=== PATIENT | male | born 1965 | race Caucasian/White ===

== ENCOUNTER 2017-07-07 10:37 | Emergency (ER) | payer OTHER ==
[2017-07-07 10:44] VITALS: BP 117/78; PULSE 67; TEMP 98.6; BMI 29.0
[2017-07-07] MEDS ORDERED: DEXAMETHASONE LIQUID 0.5 MG/5 ML 240 ML BULK BOTTLE PO ONE (11:07)
[2017-07-07] MEDS ORDERED: ALBUTEROL SO4 2.5/IPRATROPIUM 0.5 INH SOL 3 ML VIAL.NEB. NEB ONE ×2 (11:07→12:33)
[2017-07-07] MEDS: ALBUTEROL SO4 2.5/IPRATROPIUM 0.5 INH SOL 3 ML VIAL.NEB. NEB SCH ×4 (11:09→12:36)
[2017-07-07] MEDS ORDERED: DEXAMETHASONE SOD PHOSPHATE 10 MG/1 ML VIAL ONE (11:10)
--- NOTE | 2017-07-07 11:16 | PDOC ---
History of Present Illness - General Chief Complaint: Respiratory Stated Complaint: COUGH Time Seen by Provider: 07/07/17 11:04 History Source: Patient - History of Present Illness Initial Comments: 07/07/17 11:09 52-year-old male with a nonproductive cough 3 weeks. No associated symptoms. Denies fever chills, night sweats. No significant past medical history no ALLERGIES no surgical history. Past History - Past Medical History Allergies/Adverse Reactions: Allergies Allergy/AdvReac Type Severity Reaction Status Date / Time No Known Allergies Allergy Verified 07/07/17 10:41 Home Medications: Ambulatory Orders Albuterol Sulfate Inhaler - [Ventolin HFA Inhaler -] 1 - 2 inh PO Q4H #1 inhaler 07/07/17 Amoxicillin/Potassium Clav [Augmentin 875-125 Tablet] 1 each PO BID #20 tablet 07/07/17 Guaifenesin [Robitussin] 5 ml PO HS #30 ml 07/07/17 COPD: No - Suicide/Smoking/Psychosocial Hx Smoking History: Never smoked Information on smoking cessation initiated: No Hx Alcohol Use: Yes (SOCIAL) Drug/Substance Use Hx: No Substance Use Type: None Review of Systems - Review of Systems Comments:: GENERAL/CONSTITUTIONAL: No fever or chills. No weakness. No weight change. HEAD, EYES, EARS, NOSE AND THROAT: No change in vision. No ear pain or discharge. No sore throat. CARDIOVASCULAR: No chest pain or shortness of breath. RESPIRATORY: + cough, no wheezing, or hemoptysis. GASTROINTESTINAL: No nausea, vomiting, diarrhea or constipation. No rectal bleeding. GENITOURINARY: No dysuria, frequency, or change in urination. MUSCULOSKELETAL: No joint or muscle swelling or pain. No neck or back pain. SKIN AND BREASTS: No rash or easy bruising. NEUROLOGIC: No headache, vertigo, loss of consciousness, or loss of sensation. PSYCHIATRIC: No depression or anxiety. ENDOCRINE: No increased thirst. No abnormal weight change. HEMATOLOGIC/LYMPHATIC: No anemia, easy bleeding, or history of blood clots. ALLERGIC/IMMUNOLOGIC: No hives or skin allergy. No latex allergy. 07/07/17 11:15 *Physical Exam - Vital Signs Last Vital Signs Temp Pulse Resp BP Pulse Ox 98.6 F 67 18 117/78 100 07/07/17 10:42 07/07/17 10:42 07/07/17 10:42 07/07/17 10:42 07/07/17 10:42 - Physical Exam Comments: GENERAL: The patient is awake, alert, and fully oriented, in no acute distress. HEAD: Normal with no signs of trauma. EYES: Pupils equal, round and reactive to light, extraocular movements intact, sclera anicteric, conjunctiva clear. ENT: Ears normal, nares patent, oropharynx clear without exudates. Moist mucous membranes. NECK: Normal range of motion, supple without lymphadenopathy, JVD, or masses. LUNGS: Bilateral diffuse wheezing HEART: Regular rate and rhythm, normal S1 and S2 without murmur, rub or gallop. ABDOMEN: Soft, nontender, normoactive bowel sounds. No guarding, no rebound. No masses. EXTREMITIES: Normal range of motion, no edema. No clubbing or cyanosis. No cords, erythema, or tenderness. NEUROLOGICAL: Cranial nerves II through XII grossly intact. Normal speech, normal gait. PSYCH: Normal mood, normal affect. SKIN: Warm, Dry, normal turgor, no rashes or lesions noted. 07/07/17 11:18 Medical Decision Making - Medical Decision Making 52-year-old male with most likely ALLERGIC asthma. DuoNeb nebs and Decadron of been ordered I will reevaluate him after treatment 07/07/17 11:24 07/07/17 12:24 He's clearing up nicely at the second DuoNeb treatment. He does have audible rhonchi at the left base. Mild wheezing is at the left base at this point no diffuse wheezing anymore. 07/07/17 12:50 Chest x-ray was reviewed and is negative. 07/07/17 13:01 Patient's wheezing has cleared after the third DuoNeb treatment he still has mild rhonchi at the left base. I will treat him with Augmentin, Robitussin, and Ventolin, he has an upcoming appointment with his primary care provider within the week. *DC/Admit/Observation/Transfer Diagnosis at time of Disposition: Bronchitis - Discharge Dispostion Disposition: HOME Condition at time of disposition: Improved Decision to Admit order: No - Referrals Referrals: Jairo Cruz MD [Primary Care Provider] - - Patient Instructions Printed Discharge Instructions: DI for Acute Bronchitis Additional Instructions: Return to the emergency room if your symptoms worsen or return. I've given you an antibiotic which she should take one pill twice a day for the next 10 days. A cough syrup for nighttime use. As well as an inhaler if you feel short of breath. Take the medication as prescribed. Return to your primary care provider as scheduled within the next week. - Post Discharge Activity
--- NOTE | 2017-07-08 13:25 | EKG ---
Test Reason : Blood Pressure : / mmHG Vent. Rate : 065 BPM Atrial Rate : 065 BPM P-R Int : 142 ms QRS Dur : 088 ms QT Int : 392 ms P-R-T Axes : 015 024 028 degrees QTc Int : 407 ms NORMAL SINUS RHYTHM NORMAL ECG WHEN COMPARED WITH ECG OF 26-DEC-2011 07:18, NO SIGNIFICANT CHANGE WAS FOUND Confirmed by KESHAWN DUAGHERTY MD ([id number]) on 07/08/2017 1:24:35 PM Referred By: Confirmed By:KESHAWN DAUGHERTY MD
== END 2017-07-07 13:10 | disposition home or self-care (01) ==
LOC: JERFT 10:37
PROC: 3E0F7GC Introduction of Other Therapeutic Substance into Respiratory Tract, Via Natural or Artificial Opening (ICD-10-PCS; principal; 2017-07-07)
DX: J45.998 Other asthma (principal); J20.9 Acute bronchitis, unspecified
CPT/HCPCS: 71045-TC-FY; 93005; 93010; 94640; 99281-25; J7620

== ENCOUNTER 2021-11-16 19:43 | Emergency (ER) | payer OTHER ==
[2021-11-16 20:09] VITALS: BP 107/66; PULSE 63; RESP 19; TEMP 97.8; BMI 27.9
[2021-11-16] MEDS ORDERED: CEPHALEXIN MONOHYDRATE 500 MG CAPSULE (UD) PO STA (21:25)
[2021-11-16] MEDS ORDERED: CEPHALEXIN MONOHYDRATE 500 MG CAPSULE (UD) ONE (21:31)
== END 2021-11-16 21:43 | disposition home or self-care (01) ==
LOC: JER 19:43
DX: L03.311 Cellulitis of abdominal wall (principal)
CPT/HCPCS: 99283-25

== ENCOUNTER 2021-11-19 19:42 | Inpatient (IN) | payer OTHER ==
[2021-11-19 19:52] VITALS: BMI 27.9
[2021-11-19] MEDS ORDERED: VANCOMYCIN 1 GM in D5W (PRE-DOCKED) 1,000 MG/250 ML IVPB ONE (20:23)
[2021-11-19] MEDS ORDERED: PIPERACILLIN/TAZOB 3.375 GM 3.375 GM in DEXTROSE 5%-WATER - 50 ML IVPB ONE (20:23)
[2021-11-19] MEDS ORDERED: ACETAMINOPHEN 1000 MG/100 ML BAG IVPB ONE (20:23)
[2021-11-19] MEDS ORDERED: ACETAMINOPHEN INJECTION 100 ML IVPB ONE (21:02)
[2021-11-19] MEDS ORDERED: VANCOMYCIN/WATER FOR INJ (PEG) 1,000 MG/200 ML BAG IVPB ONE (21:35)
[2021-11-19] MEDS ORDERED: PIPERACILLIN/TAZOB 3.375 GM 3.375 GM/50 ML BAG IVPB ONE (21:35)
[2021-11-19 21:48] LABS: BASO % 0.5 % (0-2.0); EOS % 0.8 % (0-4.5); HEMATOCRIT 45.2 % (35.4-49); HEMOGLOBIN 15.5 GM/dL (11.7-16.9); LYMPH % 17.7 % (8-40); MCH 33.1 pg (25.7-33.7); MCHC 34.2 g/dl (32.0-35.9); MEAN CELL VOLUME 96.6 fl (80-96); MEAN PLT VOLUME 8.1 fl (7.5-11.1); MONO % 11.6 % (3.8-10.2); NEUT % 69.4 % (42.8-82.8); PLATELET COUNT 222 10^3/uL (134-434); RBC 4.68 M/mm3 (4.00-5.60); RDW 13.5 % (11.9-15.9); WHITE BLOOD COUNT 11.5 K/mm3 (4.0-10.0)
[2021-11-19 22:03] LABS: PH,URINE 5.5 (5.0-8.0); URINE APPEARANCE CLEAR; URINE BILIRUBIN NEGATIVE (NEGATIVE); URINE COLOR YELLOW; URINE GLUCOSE (UA) NEGATIVE (NEGATIVE); URINE KETONE NEGATIVE (NEGATIVE); URINE LEUK ESTERASE NEGATIVE (NEGATIVE); URINE NITRITE NEGATIVE (NEGATIVE); URINE PROTEIN NEGATIVE (NEGATIVE)
[2021-11-19 22:07] LABS: CALCIUM 9.1 mg/dL (8.5-10.1)
[2021-11-19 22:08] LABS: ALBUMIN 3.8 g/dl (3.4-5.0)
[2021-11-19 22:11] LABS: CREATININE 0.9 mg/dL (0.55-1.3)
[2021-11-19 22:12] LABS: TOT PROT 7.9 g/dl (6.4-8.2)
[2021-11-19 22:22] LABS: BILIRUBIN,TOTAL 0.9 mg/dL (0.2-1)
[2021-11-20] MEDS ORDERED: SODIUM CHLORIDE 1,000 ML IV SCH (00:30)
[2021-11-20] MEDS ORDERED: VANCOMYCIN/WATER 1250 MG 1,250 MG/250 ML BAG IVPB ONE (07:53)
[2021-11-20] MEDS ORDERED: VANCOMYCIN/WATER 1,250 MG/250 ML BAG IVPB SCH ×3 (08:00→20:00)
[2021-11-20] MEDS ORDERED: DEXTROSE 5%-LACTATED RINGERS 1,000 ML IV SCH ×2 (08:15→13:57)
[2021-11-20] MEDS ORDERED: ACETAMINOPHEN 1000 MG/100 ML BAG IVPB PRN ×2 (10:47→13:57)
[2021-11-20] MEDS ORDERED: MIDAZOLAM HCL 2 MG/2 ML SINGLE DOSE VIAL ONE (11:49)
[2021-11-20] MEDS ORDERED: PROPOFOL 20 ML ONE (12:19)
[2021-11-20] MEDS ORDERED: ONDANSETRON 4 MG/2 ML VIAL IVPUSH PRN (14:20)
[2021-11-20 16:54] LABS: BLOOD UREA NITROGEN 11.2 mg/dL (7-18); CALCIUM 8.5 mg/dL (8.5-10.1); MAGNESIUM 2.2 mg/dL (1.8-2.4)
[2021-11-20 16:55] LABS: BASO % 0.5 % (0-2.0); EOS % 0.9 % (0-4.5); HEMOGLOBIN 13.4 GM/dL (11.7-16.9); LYMPH % 22.2 % (8-40); MCH 32.2 pg (25.7-33.7); MCHC 33.4 g/dl (32.0-35.9); MEAN CELL VOLUME 96.3 fl (80-96); MEAN PLT VOLUME 8.3 fl (7.5-11.1); MONO % 8.3 % (3.8-10.2); NEUT % 68.1 % (42.8-82.8); PLATELET COUNT 211 10^3/uL (134-434); RBC 4.16 M/mm3 (4.00-5.60); RDW 13.3 % (11.9-15.9); WHITE BLOOD COUNT 8.1 K/mm3 (4.0-10.0)
[2021-11-20 16:58] LABS: CREATININE 0.8 mg/dL (0.55-1.3); PHOSPHOROUS 2.5 mg/dL (2.5-4.9)
[2021-11-20 16:59] LABS: BILIRUBIN,TOTAL 0.7 mg/dL (0.2-1)
[2021-11-20 17:22] LABS: ALBUMIN 2.8 g/dl (3.4-5.0)
[2021-11-20] MEDS: oxyCODONE HCL 5 MG TABLET PO PRN (20:29)
[2021-11-20] MEDS: VANCOMYCIN/WATER 1250 MG 1,250 MG/250 ML BAG IVPB SCH (20:35)
[2021-11-21] MEDS: oxyCODONE HCL 5 MG TABLET PO PRN (06:20)
[2021-11-21] MEDS: VANCOMYCIN/WATER 1250 MG 1,250 MG/250 ML BAG IVPB SCH ×2 (08:06→21:28)
[2021-11-21] MEDS: ENOXAPARIN NA (PORCINE) 40 MG/0.4 ML DISP.SYRIN SQ SCH (10:06)
[2021-11-21 10:21] LABS: BASO % 0.5 % (0-2.0); HEMOGLOBIN 13.8 GM/dL (11.7-16.9); LYMPH % 21.3 % (8-40); MCH 33.4 pg (25.7-33.7); MCHC 34.6 g/dl (32.0-35.9); MEAN CELL VOLUME 96.5 fl (80-96); MEAN PLT VOLUME 8.3 fl (7.5-11.1); NEUT % 67.2 % (42.8-82.8); PLATELET COUNT 209 10^3/uL (134-434); RBC 4.15 M/mm3 (4.00-5.60); RDW 13.2 % (11.9-15.9); WHITE BLOOD COUNT 6.6 K/mm3 (4.0-10.0)
[2021-11-21 10:50] LABS: CALCIUM 8.6 mg/dL (8.5-10.1)
[2021-11-21 10:52] LABS: ALBUMIN 3.1 g/dl (3.4-5.0); BLOOD UREA NITROGEN 11.5 mg/dL (7-18); MAGNESIUM 2.3 mg/dL (1.8-2.4)
[2021-11-21 10:55] LABS: BILIRUBIN,TOTAL 0.7 mg/dL (0.2-1); CREATININE 0.8 mg/dL (0.55-1.3); PHOSPHOROUS 2.7 mg/dL (2.5-4.9)
[2021-11-21 10:56] LABS: TOT PROT 6.5 g/dl (6.4-8.2)
[2021-11-21 11:40] LABS: HIV INTERPRETATION NEGATIVE (NEGATIVE)
[2021-11-22] MEDS: ENOXAPARIN NA (PORCINE) 40 MG/0.4 ML DISP.SYRIN SQ SCH (10:04)
[2021-11-22 10:57] LABS: BASO % 0.9 % (0-2.0); EOS % 1.4 % (0-4.5); HEMATOCRIT 45.9 % (35.4-49); HEMOGLOBIN 16.1 GM/dL (11.7-16.9); LYMPH % 18.6 % (8-40); MEAN CELL VOLUME 94.4 fl (80-96); MEAN PLT VOLUME 7.7 fl (7.5-11.1); MONO % 10.3 % (3.8-10.2); NEUT % 68.8 % (42.8-82.8); PLATELET COUNT 272 10^3/uL (134-434); RBC 4.86 M/mm3 (4.00-5.60); RDW 13.4 % (11.9-15.9); WHITE BLOOD COUNT 6.1 K/mm3 (4.0-10.0)
[2021-11-22 11:58] LABS: ALBUMIN 3.6 g/dl (3.4-5.0); BLOOD UREA NITROGEN 10.8 mg/dL (7-18); CALCIUM 9.7 mg/dL (8.5-10.1); MAGNESIUM 2.8 mg/dL (1.8-2.4)
[2021-11-22 11:59] LABS: PHOSPHOROUS 2.5 mg/dL (2.5-4.9)
[2021-11-22] MEDS: VANCOMYCIN/WATER 1250 MG 1,250 MG/250 ML BAG IVPB SCH ×2 (11:59→21:12)
[2021-11-22 12:02] LABS: BILIRUBIN,TOTAL 0.6 mg/dL (0.2-1); CREATININE 0.8 mg/dL (0.55-1.3); TOT PROT 8.1 g/dl (6.4-8.2)
[2021-11-22 15:25] VITALS: RESP 18
[2021-11-22] MEDS: oxyCODONE HCL 5 MG TABLET PO PRN (16:04)
[2021-11-22] MEDS ORDERED: ACETAMINOPHEN 1000 MG/100 ML BAG IVPB ONE (18:35)
[2021-11-23] MEDS ORDERED: ACETAMINOPHEN 325 MG TABLET (FP) PO PRN (00:06)
[2021-11-23] MEDS: SULFAMETHOXAZOLE/TRIMETHOPRIM 800MG/160MG D.S. TABLET PO SCH ×3 (06:16→21:11)
[2021-11-23 13:34] LABS: BASO % 0.8 % (0-2.0); EOS % 1.6 % (0-4.5); HEMOGLOBIN 15.7 GM/dL (11.7-16.9); LYMPH % 23.1 % (8-40); MCH 32.5 pg (25.7-33.7); MCHC 34.1 g/dl (32.0-35.9); MEAN CELL VOLUME 95.2 fl (80-96); MEAN PLT VOLUME 8.1 fl (7.5-11.1); MONO % 11.3 % (3.8-10.2); NEUT % 63.2 % (42.8-82.8); PLATELET COUNT 302 10^3/uL (134-434); RBC 4.83 M/mm3 (4.00-5.60); RDW 13.1 % (11.9-15.9)
[2021-11-23 13:44] LABS: ALBUMIN 3.6 g/dl (3.4-5.0); BLOOD UREA NITROGEN 14.3 mg/dL (7-18)
[2021-11-23 13:45] LABS: PHOSPHOROUS 3.9 mg/dL (2.5-4.9)
[2021-11-23 13:47] LABS: BILIRUBIN,TOTAL 0.3 mg/dL (0.2-1); TOT PROT 7.6 g/dl (6.4-8.2)
[2021-11-23 13:53] LABS: CALCIUM 9.1 mg/dL (8.5-10.1); MAGNESIUM 2.3 mg/dL (1.8-2.4)
[2021-11-24] MEDS: SULFAMETHOXAZOLE/TRIMETHOPRIM 800MG/160MG D.S. TABLET PO SCH (10:41)
[2021-11-24 10:46] VITALS: BP 103/66; PULSE 78; TEMP 98.1
[2021-11-24 11:08] LABS: HEMOGLOBIN 15.7 GM/dL (11.7-16.9); MCH 32.6 pg (25.7-33.7); MCHC 34.1 g/dl (32.0-35.9); MEAN CELL VOLUME 95.6 fl (80-96); MEAN PLT VOLUME 7.7 fl (7.5-11.1); PLATELET COUNT 312 10^3/uL (134-434); RBC 4.81 M/mm3 (4.00-5.60); RDW 13.4 % (11.9-15.9); WHITE BLOOD COUNT 7.3 K/mm3 (4.0-10.0)
== END 2021-11-24 17:53 | disposition home or self-care (01) | DRG 383 ==
LOC: JER 19:42 → JERBED 11-20 00:21 → J8W 11-20 09:18 → J6S 11-21 22:37
PROVIDERS: ADMIT Internal Medicine; ATTEND Internal Medicine
PROC: 0J980ZX Drainage of Abdomen Subcutaneous Tissue and Fascia, Open Approach, Diagnostic (ICD-10-PCS; principal; 2021-11-20 11:30)
DX: L02.211 Cutaneous abscess of abdominal wall (principal); D72.829 Elevated white blood cell count, unspecified; L03.311 Cellulitis of abdominal wall; K21.9 Gastro-esophageal reflux disease without esophagitis; A49.02 Methicillin resistant Staphylococcus aureus infection, unspecified site; L02.219 Cutaneous abscess of trunk, unspecified
CPT/HCPCS: 36415; 74177-TC; 80053; 81003; 83036; 83735; 84100; 85025; 85027; 87040; 87070; 87086; 87186; 87205; 87389; 93005; 93010; 94760; 99285-25; C9803-CS; G0480; Q9967; U0003; U0005

== ENCOUNTER 2023-06-06 19:38 | Emergency (ER) | payer OTHER ==
[2023-06-06 19:42] VITALS: BP 106/62; PULSE 80; RESP 18; TEMP 98.4; BMI 30.7
[2023-06-06] MEDS: CLINDAMYCIN HCL 300 MG CAPSULE PO ONE (21:01)
[2023-06-06] MEDS: ACETAMINOPHEN 325 MG TABLET (FP) PO ONE (21:01)
[2023-06-06] MEDS ORDERED: ACETAMINOPHEN 325 MG TABLET (FP) ONE (21:05)
[2023-06-06] MEDS ORDERED: CLINDAMYCIN HCL 150 MG CAPSULE (FP) ONE (21:05)
== END 2023-06-06 21:23 | disposition home or self-care (01) ==
LOC: JER 19:38
DX: R22.0 Localized swelling, mass and lump, head (principal); L02.01 Cutaneous abscess of face
CPT/HCPCS: 87070; 87186; 87205; 99283-25